=== PATIENT | female | born 1985 | race Asian ===

== ENCOUNTER 2020-02-18 09:16 | Emergency (ER) | payer MEDICAID ==
[~2020-02-18] VITALS: Ht 157.5 cm; Wt 50.0 kg
[2020-02-18 09:40] VITALS: BP 115/73
[2020-02-18] MEDS ORDERED: OXYMETAZOLINE 0.05% NASAL SPRAY 30ML BOTTLE. NS ONE ×2 (10:02→10:15)
--- NOTE | 2020-02-18 10:08 | PHYS DOC ---
General Adult EDM: Chief Complaint: NOSEBLEED HPI: HPI: Patient is a 34 year old female who presented to ER today for evaluation of left side nose bleeding, no injury. Patient denies any fever, no headache, no blood thinner. Patient had no previous history of nose bleeding. Review of Systems: Review of Systems: Constitutional: Denies fever or chills. [] Eyes: Denies change in visual acuity. [] HENT: Denies nasal congestion or sore throat. Positive for nose bleeding Respiratory: Denies cough or shortness of breath. [] Cardiovascular: Denies chest pain or edema. [] GI: Denies abdominal pain, nausea, vomiting, bloody stools or diarrhea. [] : Denies dysuria. [] Musculoskeletal: Denies back pain or joint pain. [] Integument: Denies rash. [] Neurologic: Denies headache, focal weakness or sensory changes. [] Endocrine: Denies polyuria or polydipsia. [] Lymphatic: Denies swollen glands. [] Psychiatric: Denies depression or anxiety. [] Heart Score: Risk Factors: Risk Factors: DM, Current or recent (<one month) smoker, HTN, HLP, family history of CAD, obesity. Risk Scores: Score 0 - 3: 2.5% MACE over next 6 weeks - Discharge Home Score 4 - 6: 20.3% MACE over next 6 weeks - Admit for Clinical Observation Score 7 - 10: 72.7% MACE over next 6 weeks - Early Invasive Strategies Current Medications: Current Medications Medications (Trade) Dose Ordered Sig/Sarahi Start Time Stop Time Status Last Admin Dose Admin Oxymetazoline HCl (Afrin) 120 spray STK-MED ONCE 02/18/20 10:02 02/18/20 10:02 DC Allergies: Allergies: Allergies Coded Allergies Type Severity Reaction Last Updated Verified No Known Drug Allergies 02/18/20 No Physical Exam: PE: Constitutional: Well developed, well nourished, no acute distress, non-toxic appearance. [] HENT: Normocephalic, atraumatic, bilateral external ears normal, oropharynx moist, no oral exudates, dried blood in left nasal nare, no active bleeding. Eyes: PERRLA, EOMI, conjunctiva normal, no discharge. [] Neck: Normal range of motion, no tenderness, supple, no stridor. [] Cardiovascular:Heart rate regular rhythm, no murmur [] Lungs & Thorax: Bilateral breath sounds clear to auscultation [] Abdomen: Bowel sounds normal, soft, no tenderness, no masses, no pulsatile masses. [] Skin: Warm, dry, no erythema, no rash. [] Back: No tenderness, no CVA tenderness. [] Extremities: No tenderness, no cyanosis, no clubbing, ROM intact, no edema. [] Neurologic: Alert and oriented X 3, normal motor function, normal sensory function, no focal deficits noted. [] Psychologic: Affect normal, judgement normal, mood normal. [] EKG: EKG: [] Radiology/Procedures: Radiology/Procedures: [] Course & Med Decision Making: Course & Med Decision Making Pertinent Labs and Imaging studies reviewed. (See chart for details) Patient is a 34-year-old female who was evaluated in ER due to nosebleeding, she was given nasal Afrin, no bleeding noted. Patient was discharged home. Juarez Disclaimer: Juarez Disclaimer: This electronic medical record was generated, in whole or in part, using a voice recognition dictation system. Departure Departure Impression: Primary Impression: Left-sided nosebleed Disposition: HOME, SELF-CARE Condition: IMPROVED Referrals: NO PCP (PCP) follow up with your doctor for a referral to ENT doctor for reevaluation next week as needed Patient Instructions: MOOKIE Roman DO February 18, 2020 10:08
== END 2020-02-18 10:21 | disposition home or self-care (01) ==
LOC: ER 09:16
DX: R04.0 Epistaxis (principal)
CPT/HCPCS: 99282

== ENCOUNTER 2020-04-05 18:30 | Emergency (ER) | payer MEDICAID ==
[~2020-04-05] VITALS: Ht 152.4 cm; Wt 59.0 kg
[2020-04-05 19:10] VITALS: BP 125/62
--- NOTE | 2020-04-05 20:15 | NUR ---
FHT's noted in 135-140's and no ctx's noted.
[2020-04-05 20:39] LABS: BASO % 1 % (0-3); EOS # 0.1 x10^3/uL (0.0-0.7); EOS % 1 % (0-3); HEMATOCRIT 36.8 % (36.0-47.0); HEMOGLOBIN 12.6 g/dL (12.0-15.5); LYMPH # 1.1 x10^3/uL (1.0-4.8); LYMPH % 15 % (24-48); MEAN CORPUSCULAR HEMOGLOBIN 31 pg (25-35); MEAN CORPUSCULAR HGB CONC 34 g/dL (31-37); MEAN CORPUSCULAR VOLUME 90 fL (79-100); MONO # 0.6 x10^3/uL (0.0-1.1); MONO % 9 % (0-9); NEUT # 5.3 x10^3/uL (1.8-7.7); NEUT % 75 % (31-73); PLATELET COUNT 188 x10^3/uL (140-400); RED BLOOD COUNT 4.09 x10^6/uL (3.50-5.40); RED CELL DISTRIBUTION WIDTH 13.5 % (11.5-14.5); WHITE BLOOD COUNT 7.1 x10^3/uL (4.0-11.0)
--- NOTE | 2020-04-05 21:38 | PHYS DOC ---
Past Medical History Past Medical History: No Pertinent History Past Surgical History: No Surgical History Smoking Status: Never Smoker Alcohol Use: None General Adult EDM: Chief Complaint: NOSEBLEED HPI: HPI: Patient is a 34 year old female who is 31 weeks presents with a chief complaint of bloody nose. Patient has had bloody nose on and off since yesterday. Patient denies any injury she denies any previous history of epistaxis. On exam patient with large amount of bright red blood from left nostril. There is some drainage of blood from right nostril. Patient denies any abdominal pain pelvic pain no vaginal bleeding. Review of Systems: Review of Systems: Constitutional: Denies fever or chills. [] Eyes: Denies change in visual acuity. [] HENT: Positive epistaxis Respiratory: Denies cough or shortness of breath. [] Cardiovascular: Denies chest pain or edema. [] GI: Denies abdominal pain, nausea, vomiting, bloody stools or diarrhea. [] : Denies dysuria. [] Positive Musculoskeletal: Denies back pain or joint pain. [] Integument: Denies rash. [] Neurologic: Denies headache, focal weakness or sensory changes. [] Endocrine: Denies polyuria or polydipsia. [] Lymphatic: Denies swollen glands. [] Psychiatric: Denies depression or anxiety. [] Heart Score: Risk Factors: Risk Factors: DM, Current or recent (<one month) smoker, HTN, HLP, family history of CAD, obesity. Risk Scores: Score 0 - 3: 2.5% MACE over next 6 weeks - Discharge Home Score 4 - 6: 20.3% MACE over next 6 weeks - Admit for Clinical Observation Score 7 - 10: 72.7% MACE over next 6 weeks - Early Invasive Strategies Allergies: Allergies: Allergies Coded Allergies Type Severity Reaction Last Updated Verified No Known Drug Allergies 02/18/20 No Physical Exam: PE: Constitutional: Well developed, well nourished, no acute distress, non-toxic appearance. [] HENT: Normocephalic, atraumatic, bilateral external ears normal, oropharynx moist, no oral exudates, large amount of blood coming from left nostril. Unable to visualize source. Neck: Normal range of motion, no tenderness, supple, no stridor. [] Cardiovascular:Heart rate regular rhythm, no murmur [] Lungs & Thorax: Bilateral breath sounds clear to auscultation [] Abdomen: Bowel sounds normal, soft, no tenderness, no masses, no pulsatile masses. [] Skin: Warm, dry, no erythema, no rash. [] Back: No tenderness, no CVA tenderness. [] Extremities: No tenderness, no cyanosis, no clubbing, ROM intact, no edema. [] Neurologic: Alert and oriented X 3, normal motor function, normal sensory function, no focal deficits noted. [] Psychologic: Affect normal, judgement normal, mood normal. [] Current Patient Data: Labs: Laboratory Tests Test 04/05/20 20:33 White Blood Count 7.1 x10^3/uL (4.0-11.0) Red Blood Count 4.09 x10^6/uL (3.50-5.40) Hemoglobin 12.6 g/dL (12.0-15.5) Hematocrit 36.8 % (36.0-47.0) Mean Corpuscular Volume 90 fL (79-100) Mean Corpuscular Hemoglobin 31 pg (25-35) Mean Corpuscular Hemoglobin Concent 34 g/dL (31-37) Red Cell Distribution Width 13.5 % (11.5-14.5) Platelet Count 188 x10^3/uL (140-400) Neutrophils (%) (Auto) 75 % (31-73) H Lymphocytes (%) (Auto) 15 % (24-48) L Monocytes (%) (Auto) 9 % (0-9) Eosinophils (%) (Auto) 1 % (0-3) Basophils (%) (Auto) 1 % (0-3) Neutrophils # (Auto) 5.3 x10^3/uL (1.8-7.7) Lymphocytes # (Auto) 1.1 x10^3/uL (1.0-4.8) Monocytes # (Auto) 0.6 x10^3/uL (0.0-1.1) Eosinophils # (Auto) 0.1 x10^3/uL (0.0-0.7) Basophils # (Auto) 0.0 x10^3/uL (0.0-0.2) Laboratory Tests 04/05/20 20:33 Vital Signs: Vital Signs Date Time Temp Pulse Resp B/P (MAP) Pulse Ox O2 Delivery O2 Flow Rate FiO2 04/05/20 19:10 98.4 94 18 125/62 (83) 97 Room Air 98.4 EKG: EKG: [] Radiology/Procedures: Radiology/Procedures: [] Course & Med Decision Making: Course & Med Decision Making Pertinent Labs and Imaging studies reviewed. (See chart for details) [] Patient underwent a Rhino Rocket placement. I had patient blow her nose to clean out all her blood clots. Once blood clots removed Rhino Rocket inserted. Rhino Rocket's anterior Rhino Rocket. Was inflated to 10 cc of air initially. 5 cc of air was eventually removed once bleeding was controlled. Patient was observed with no return bleeding. Patient was discharged home with instructions to follow-up with ENT. Patient given contact information to call to schedule an appointment. Juarez Disclaimer: Juarez Disclaimer: This electronic medical record was generated, in whole or in part, using a voice recognition dictation system. Departure Departure Impression: Primary Impression: Epistaxis Disposition: 01 HOME, SELF-CARE Condition: STABLE Referrals: VEL VAZQUEZ MD Patient Instructions: Nosebleed Additional Instructions: Please call ENT tomorrow to schedule appointment. Nasal Packing will need to be removed in 2-3 days. Justicifation of Admission Dx: Justifications for Admission: Justification of Admission Dx: N/A VONDA RIVERA I DO Apr 05, 2020 21:38
== END 2020-04-05 21:30 | disposition home or self-care (01) ==
LOC: ER 18:30
DX: R04.0 Epistaxis (principal)
CPT/HCPCS: 30901; 36415; 85025; 99284

== ENCOUNTER 2021-07-18 07:02 | Emergency (ER) | payer MEDICAID ==
[~2021-07-18] VITALS: Ht 157.5 cm; Wt 62.0 kg
--- NOTE | 2021-07-18 07:06 | PHYS DOC ---
Past Medical History Past Medical History: No Pertinent History Past Surgical History: No Surgical History Smoking Status: Never Smoker Alcohol Use: None General Adult EDM: Chief Complaint: FINGER INJURY HPI: HPI: Patient is a 36 year old female who presents with left ring finger discomfort and difficulty flexing at her MCP, for over a year. She denies any trauma or injury. She denies any pain currently. She denies any swelling or redness. No wounds. No numbness or tingling. No hand pain. No wrist pain. No other areas of digit or joint pain or discomfort. No changes in any symptoms today. She has not seen a primary care physician. She was hoping that I would be able to give her medicine to make her symptoms resolved. She is right-hand dominant. Review of Systems: Review of Systems: Constitutional: Denies fever or chills. [] Respiratory: Denies respiratory symptoms Cardiovascular: Denies chest pain Musculoskeletal: Reports greater than 1 year of left ring finger MCP discomfort and problems with flexion, no joint swelling or redness Integument: Denies skin changes of the hand or digit, denies skin redness or rash Neurologic: Denies weakness or numbness Heart Score: C/O Chest Pain: No Risk Factors: Risk Factors: DM, Current or recent (<one month) smoker, HTN, HLP, family history of CAD, obesity. Risk Scores: Score 0 - 3: 2.5% MACE over next 6 weeks - Discharge Home Score 4 - 6: 20.3% MACE over next 6 weeks - Admit for Clinical Observation Score 7 - 10: 72.7% MACE over next 6 weeks - Early Invasive Strategies Allergies: Allergies: Allergies Coded Allergies Type Severity Reaction Last Updated Verified No Known Drug Allergies 02/18/20 No Physical Exam: PE: Constitutional: Well developed, well nourished, no acute distress, non-toxic appearance. [] HENT: Normocephalic, atraumatic Eyes: Sclera are clear and anicteric Neck: Trachea is midline Cardiovascular: Well-perfused appearing, cap refill is brisk, +2 radial pulse of the left hand Lungs & Thorax: Respirations are nonlabored Skin: Warm, dry, no erythema, no rash. No warmth or erythema or swelling of any joint on her left hand. Extremities: No deformity of the left hand, left wrist, left arm, elbow or forearm. There is very minimal limited flexion of the left ring finger at the MCP, possible subtle contracture noted at the palmar surface of the MCP, palpably thickened tendon. There is no fusiform swelling of any digit on the left hand. No wrist tenderness. No hand tenderness. No rotational deformities of any digits. No palpable tenderness along any portion of the entire left ring finger or other digits of the left hand. Neurologic: Alert and oriented X 3, normal motor function, normal sensory function, no focal deficits noted. [] Psychologic: Flat affect. EKG: EKG: [] Radiology/Procedures: Radiology/Procedures: [] Course & Med Decision Making: Course & Med Decision Making I have discussed the findings, differential diagnosis and plan of care with the patient. She adamantly denies any trauma or injury. She denies any acute changes in any symptoms today. No focal weakness is appreciated. No warmth erythema or evidence of obvious infection noted today. I do suspect likely tendon contracture or Dupuytren's type contracture. I explained she needs to follow-up with a primary care physician and may need to see a hand specialist. She is given resources for outpatient primary care. No indication for emergent imaging at this time. She is given return precautions. Juarez Disclaimer: Juarez Disclaimer: This electronic medical record was generated, in whole or in part, using a voice recognition dictation system. Departure Departure Impression: Primary Impression: Pain in finger Qualified Codes: M79.645 - Pain in left finger(s) Disposition: HOME / SELF CARE / HOMELESS Condition: GOOD Referrals: NO PCP (PCP) Patient Instructions: Arthritis, Nonspecific Additional Instructions: Return to the emergency department if you are acutely injured, if you I have a wound or bleeding, if you fall, if you have any swelling, redness, fever 100.4 or higher, open wounds, or if anything acutely changes. You need to find a primary care physician for follow-up of this finger pain. You may very well need to see a hand specialist for this as well. If you have any pain, you may take [id number] Tylenol or ibuprofen as needed. ALLISON AGUSTIN DO Jul 18, 2021 07:06
[2021-07-18 07:08] VITALS: BP 107/52
== END 2021-07-18 07:28 | disposition home or self-care (01) ==
LOC: ER 07:02
DX: M79.645 Pain in left finger(s) (principal)
CPT/HCPCS: 99282

== ENCOUNTER 2022-01-19 07:25 | Emergency (ER) | payer MEDICAID ==
[~2022-01-19] VITALS: Ht 147.3 cm; Wt 52.2 kg
[2022-01-19 07:49] VITALS: BP 117/76
[2022-01-19] MEDS ORDERED: ERYTHROMYCIN 0.5% OPHTH OINTMENT 1GM TUBE. OS ONE (08:00)
[2022-01-19] MEDS ORDERED: DEXAMETHASONE 4 MG TABLET PO ONE (08:00)
[2022-01-19] MEDS ORDERED: ERYT1OIN6 OP (08:02)
--- NOTE | 2022-01-19 08:02 | PHYS DOC ---
Past Medical History Past Medical History: No Pertinent History Past Surgical History: No Surgical History Smoking Status: Never Smoker Alcohol Use: None General Adult EDM: Chief Complaint: EYE PROBLEMS HPI: HPI: Patient is a 36 female presents with report of left upper eyelid swelling which started yesterday. Denies use of contact lenses. Denies fever or chills. Patient tried to use an over the counter eyedrop without improvement. Denies trauma. Review of Systems: Review of Systems: Constitutional: Denies fever or chills Eyes: Reports left upper eyelid redness and swelling; denies discharge HENT: Denies nasal congestion or sore throat Respiratory: Denies cough or shortness of breath Cardiovascular: Denies chest pain or palpitations Integument: Denies rash or skin lesions Neurologic: Denies headache, focal weakness or sensory changes Complete systems were reviewed and found to be within normal limits, except as documented in this note. Heart Score: C/O Chest Pain: N/A Allergies: Allergies: Allergies Coded Allergies Type Severity Reaction Last Updated Verified No Known Drug Allergies 02/18/20 No Physical Exam: PE: Constitutional: Well developed, well nourished, no acute distress, non-toxic appearance HENT: Normocephalic, atraumatic Eyes: PERRL, EOMI, left upper eyelid swelling and mild erythema, conjunctiva normal, no discharge Neck: Normal range of motion, supple Lungs & Thorax: No respiratory distress, equal chest rise and fall Skin: Warm, dry, no erythema, no rash Extremities: No tenderness, ROM intact, no edema Neurologic: Alert and oriented X 3, no focal deficits noted Psychologic: Affect normal, judgment normal Current Patient Data: Vital Signs: Vital Signs Date Time Temp Pulse Resp B/P (MAP) Pulse Ox O2 Delivery O2 Flow Rate FiO2 01/19/22 07:49 99.0 88 16 117/76 (90) 97 Room Air 99.0 EKG: EKG: [] Radiology/Procedures: Radiology/Procedures: [] Course & Med Decision Making: Course & Med Decision Making Patient presents with HPI and physical exam consistent for blepharitis of left upper eyelid. Patient denies use of contact lenses. Empiric antibiotic ointment applied. Symptomatic steroid also provided to help with swelling. Patient stable for discharge with outpatient follow-up with PCP/ophthalmology. Ophthalmology referral provided. Discussed findings and plan with patient, who acknowledges understanding and agreement. Juarez Disclaimer: Juarez Disclaimer: This electronic medical record was generated, in whole or in part, using a voice recognition dictation system. Departure Departure Impression: Primary Impression: Blepharitis of eyelid of left eye Qualified Codes: H01.004 - Unspecified blepharitis left upper eyelid Disposition: HOME / SELF CARE / HOMELESS Condition: STABLE Referrals: NO PCP (PCP) ALFREDO PALMER MD Patient Instructions: Blepharitis, [id number] Scripts Erythromycin Base (Erythromycin) 1 Gm Oint...g. 0.25 INCH OP QID for 5 Days, #1 GM Apply to left eye Prov: FELIPA BRISENO DO 01/19/22 FELIPA BRISENO DO Jan 19, 2022 08:02
== END 2022-01-19 08:12 | disposition home or self-care (01) ==
LOC: ER 07:25
DX: H01.004 Unspecified blepharitis left upper eyelid (principal)
CPT/HCPCS: 99283